=== PATIENT | male | born 1955 | race African-American/Black ===

== ENCOUNTER 2018-01-15 09:58 | Emergency (ER) | payer MEDICARE, MEDICAID ==
[~2018-01-15] VITALS: Ht 177.8 cm; Wt 81.6 kg
[~2018-01-15 09:58] MED LIST: AMLODIPINE BESY10 MG ORAL; LISINOPRIL10 MG ORAL; NAPROXEN500 M2 ORAL; QUETIAPINE FUMA25 MG ORAL
[2018-01-15 10:08] VITALS: BP 142/90
[2018-01-15 10:13] VITALS: BP 142/90
== END 2018-01-15 10:00 | disposition left against medical advice (07) ==
LOC: EDUNIT# 09:58 → EDBD 09:58 → EMR 10:00
DX: Z53.21 Procedure and treatment not carried out due to patient leaving prior to being seen by health care provider (principal)

== ENCOUNTER 2018-06-02 23:59 | Emergency (ER) | payer MEDICARE, OTHER ==
[~2018-06-02] VITALS: Ht 180.3 cm; Wt 9.5 kg
[2018-06-03 00:10] VITALS: BP 138/75
[2018-06-03] MEDS ORDERED: KLONOPIN0.5 MG ORAL (00:15)
--- NOTE | 2018-06-03 00:52 | Emergency Room Report ---
History of Present Illness General Chief Complaint: Headache Source: Patient Present Illness HPI Mr. Garrison is a 63 yo male with hx of schizophrenia and HTN. He presents with chronic headache which he attributes to lead and asbestos exposure at his apartment. Headache has been present for 2 years. He wanted to ensure that he does not have a brain bleed. He also requests refills of Klonopin, amlodine and lisinopril. NO current SI/HI. Mild global headachel. NO n/v. No weakness or numbness. Allergies: Uncoded Allergies: phenathiazines (Adverse Reaction, Unknown, 07/13/17) Patient History Past Medical History: see triage record, old chart reviewed Past Surgical History: other - reviewed per EMR Pertinent Family History: unable to obtain Social History: Denies: alcohol use, drug use Reviewed Nursing Documentation: PMH: Agreed; PSxH: Agreed Nursing Documentation-PMH History Of Psychiatric Problem: Yes - schizophrenia Review of Systems Constitutional: Denies: fever, malaise Gastrointestinal: Denies: abdominal pain Neurological: Reports: headache All Other Systems: negative except mentioned in HPI Physical Exam Vital Signs Date Time Temp Pulse Resp B/P (MAP) Pulse Ox O2 Delivery O2 Flow Rate FiO2 06/03/18 00:07 98.1 83 18 138/75 96 Room Air Sp02 EP Interpretation: reviewed, normal General Appearance: no apparent distress, alert, GCS 15, non-toxic Head: normocephalic, atraumatic Eyes: bilateral eye normal inspection, bilateral eye PERRL ENT: hearing grossly normal, normal pharynx, no angioedema, normal voice Neck: full range of motion, supple/symm/no masses Respiratory: chest non-tender, lungs clear, normal breath sounds, no rhonchi, no respiratory distress, no retraction, no accessory muscle use, speaking full sentences Cardiovascular #1: regular rate, rhythm, no edema, no gallop, no JVD, no murmur , no rub Cardiovascular #2: 2+ dorsalis pedis (R), 2+ dorsalis pedis (L) Gastrointestinal: normal bowel sounds, non tender, soft, no mass, no organomegaly, no peritonitis, no bruit, non-distended, no guarding, no rebound Musculoskeletal: back normal, gait/station normal, normal range of motion, non- tender, calf tenderness Neurologic: alert, oriented x3, responsive, motor strength/tone normal, sensory intact, speech normal Psychiatric: judgement/insight normal, memory normal, mood/affect normal, no suicidal/homicidal ideation, other - calm polite cooperative Skin: normal color, no rash, warm/dry, well hydrated Lymphatic: no adenopathy Medical Decision Making Diagnostic Impression: Primary Impression: Headache Additional Impression: Medication refill ER Course Mr. Garrison presents with chronic headache. He attributed his headache to lead and asbestos in his apartment. He does not appear to be a harm to self or others. He is not actively responding to internal stimuli. He is calm and cooperative polite. I did provide refill of prescriptions of amlodipine lisinopril. Provided 14 day prescriptions. Last Vital Signs Date Time Temp Pulse Resp B/P (MAP) Pulse Ox O2 Delivery O2 Flow Rate FiO2 06/03/18 00:10 98.1 82 18 138/75 96 Room Air Disposition: HOME, SELF-CARE Condition: Stable Shalini Funez MD Jun 03, 2018 00:52
[2018-06-03] MEDS ORDERED: NORVASC10 MG ORAL (00:54)
[2018-06-03] MEDS ORDERED: PRINIVIL10 MG ORAL (00:54)
[2018-06-03 01:19] VITALS: BP 132/77
== END 2018-06-03 01:19 | disposition home or self-care (01) ==
LOC: EMR 06-03 00:19
DX: R51 Headache (principal); Z76.0 Encounter for issue of repeat prescription; F20.9 Schizophrenia, unspecified; Z88.8 Allergy status to other drugs, medicaments and biological substances
CPT/HCPCS: 99282